=== PATIENT | male | born 1965 | race Caucasian/White ===

== ENCOUNTER 2022-02-21 09:51 | Emergency (ER) | payer MEDICAID ==
[~2022-02-21] VITALS: Ht 188 cm; Wt 77.1 kg
[2022-02-21 09:57] VITALS: BP 150/79
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
[2022-02-21] MEDS ORDERED: OXYC5CAP18 PO (10:30)
[2022-02-21] MEDS ORDERED: HYDROCODONE/APAP 5/325MG TABLET PO ONE (10:30)
[2022-02-21] MEDS ORDERED: HYDROCODONE/APAP 5/325MG TABLET ONE (10:31)
--- NOTE | 2022-02-21 10:40 | NUR ---
Patient discharged to home in stable condition. Written and verbal after care instructions given. Patient verbalizes understanding of instruction.
[2022-02-25] MEDS ORDERED: OXYC-128 PO ×2 (15:12→15:38)
== END 2022-02-21 10:40 | disposition home or self-care (01) ==
LOC: ER 09:58
DX: G89.29 Other chronic pain (principal); M54.2 Cervicalgia; Z76.0 Encounter for issue of repeat prescription; Z79.891 Long term (current) use of opiate analgesic

== ENCOUNTER → 2022-02-25 | Emergency (ER) | payer MEDICAID ==
[~2022-02-25] VITALS: Ht 188 cm; Wt 77.1 kg
[~2022-02-25] MED LIST: OXYC-128 PO; OXYC5CAP18 PO
[2022-02-25 14:29] VITALS: BP 124/88
--- NOTE | 2022-02-25 14:29 | NUR ---
JOHN RA 860 FROM HOME FOR REFILL OF PAIN MEDICATION
--- NOTE | 2022-02-25 15:19 | NUR ---
Patient discharged to home in stable condition. Written and verbal after care instructions given. Patient verbalizes understanding of instruction.
== END | disposition home or self-care (01) ==
LOC: ER 14:27
DX: S12.9XXD Fracture of neck, unspecified, subsequent encounter (principal); Z76.0 Encounter for issue of repeat prescription; F11.20 Opioid dependence, uncomplicated; Z76.5 Malingerer [conscious simulation]; X58.XXXS Exposure to other specified factors, sequela